=== PATIENT | male | born 1970 | race Two or more races ===

== ENCOUNTER → 2024-06-13 | Outpatient (CLI) | payer OTHER, SELFPAY ==
--- NOTE | 2024-06-13 15:47 | XR_ITS ---
Examination: Shoulder,right, 3 views Technique: Shoulder AP internal rotation, AP external rotation, Y view shoulder, 3 views Exam date and time :June 13, 2024 at 1607 hours INDICATIONS: Patient fell 4 months ago with injury to the shoulder, shoulder pain. FINDINGS: No shoulder fracture or dislocation Mild shoulder calcific tendinitis No AC joint separation IMPRESSION: Mild shoulder calcific tendinitis Recommend short-term follow-up as clinically warranted
--- NOTE | 2024-06-13 15:48 | XR_ITS ---
Examination: Right elbow 3 views Technique: Elbow AP, oblique, lateral 3 views Exam date and time: June 13, 2024 1607 hours INDICATIONS: Patient fell 4 months ago within the available, elbow pain. FINDINGS: No fracture or dislocation No foreign body IMPRESSION: No fracture or dislocation.
== END | disposition home or self-care (01) ==
PROVIDERS: PCP Nurse Practitioner Family; Referring Provider Nurse Practitioner Family; Visit Provider Nurse Practitioner Family
DX: S43.401A Unspecified sprain of right shoulder joint, initial encounter (principal); W19.XXXA Unspecified fall, initial encounter; M75.31 Calcific tendinitis of right shoulder; M25.521 Pain in right elbow
CPT/HCPCS: 73030; 73080

== ENCOUNTER 2025-02-02 06:40 | Day surgery (SDC) | payer MEDICAID, SELFPAY ==
[2025-02-01 10:44] VITALS: BMI 26.9
[2025-02-02] VITALS (13 sets, daily range): BP systolic 105–175; BP diastolic 70–116; PULSE 62–94; RESP 12–26; TEMP 36.1–36.6; O2SAT 91–100; BMI 25.7
[2025-02-02] MEDS: SODIUM CHLORIDE 0.9% 500 ML 500 ML 125 ML IV (07:52)
[2025-02-02] MEDS: SIMETHICONE 40 MG/0.6 ML ORAL SYRINGE PO (08:00)
[2025-02-02] MEDS: MIDAZOLAM INJ 1 MG/ML VIAL 2 ML (ASD USE ONLY) 2 MG IVP (08:06)
[2025-02-02] MEDS: fentaNYL CIT INJ 50 mCg/ML AMP 2ML (ASD USE ONLY) IVP (08:15)
== END 2025-02-02 09:29 | disposition home or self-care (01) ==
PROVIDERS: PCP Physician Assistant; Referring Provider Surgery; Visit Provider Surgery
PROC: 0DBE8ZX Excision of Large Intestine, Via Natural or Artificial Opening Endoscopic, Diagnostic (ICD-10-PCS; CPT 45380; principal; 2025-02-02 07:30)
DX: D12.4 Benign neoplasm of descending colon (principal); D12.5 Benign neoplasm of sigmoid colon; K64.1 Second degree hemorrhoids; K57.30 Diverticulosis of large intestine without perforation or abscess without bleeding; R19.5 Other fecal abnormalities; E11.9 Type 2 diabetes mellitus without complications; E78.00 Pure hypercholesterolemia, unspecified; I10 Essential (primary) hypertension; Z79.899 Other long term (current) drug therapy; Z79.84 Long term (current) use of oral hypoglycemic drugs
CPT/HCPCS: 45385; 45380; 45381; A4649; J1200; J2250; J3010; J7999; A9270